=== PATIENT | female | born 1965 | race Two or more races ===

== ENCOUNTER 2020-03-31 22:03 | Emergency (ER) | payer OTHER ==
[~2020-03-31] VITALS: Ht 160 cm; Wt 61.2 kg
[~2020-03-31 22:03] MED LIST: BENADRYL25 MG ORAL; CEPHALEXIN500 MG ORAL; NKM
[2020-03-31 22:16] VITALS: BP 137/88
--- NOTE | 2020-03-31 22:16 | NUR ---
ED Nurse Note: Pt left without seeing EDMD. Pt stated "Im going to go" but did not give reason. Addendum: 03/31/20 at 2221 by JASON ED Nurse Note: Pt left without seeing EDMD. Pt stated "Im going to go" but did not give reason. Education given on risk and benefits of leaving, pt stated she wanted to leave. Pt refused to sign paperwork.
--- NOTE | 2020-03-31 22:17 | Emergency Room Report ---
History of Present Illness General Chief Complaint: Multiple Trauma/Fall Source: Patient Present Illness HPI Is a 55-year-old female who presents with a chief point of multiple injuries from a fall. She tripped and fell and hit her head and injured her knees also. She complained of head injury and laceration to the right eyebrow. Also pain to the bilateral knees. She was triaged and brought to the room. After she went to the restroom, she was talking on the phone with family member decided that she does not want to stay. I did not get examined this patient other than observation. Allergies: Coded Allergies: No Known Allergies (Unverified , 05/28/13) COVID-19 Screening Contact w/high risk pt: No Experienced COVID-19 symptoms?: No COVID-19 Testing performed [employer]: No Nursing Documentation-[facility] [place] Past Medical History: No Stated History Physical Exam Vital Signs Date Time Temp Pulse Resp B/P (MAP) Pulse Ox O2 Delivery O2 Flow Rate FiO2 03/31/20 22:07 98.8 86 18 137/88 (104) 97 Room Air Medical Decision Making Diagnostic Impression: Primary Impression: Multiple injuries due to trauma ER Course Patient presents with a fall with multiple injury including head injury. She decided not to stay after talking to her family member. She is competent to make that decision. I did not get to see this patient. Last Vital Signs Date Time Temp Pulse Resp B/P (MAP) Pulse Ox O2 Delivery O2 Flow Rate FiO2 03/31/20 22:07 98.8 86 18 137/88 (104) 97 Room Air Status: unchanged Disposition: AGAINST MEDICAL ADVICE Condition: Stable Ponce Young MD Mar 31, 2020 22:17
== END 2020-03-31 22:16 | disposition left against medical advice (07) ==
LOC: EMR 22:16
DX: S09.90XA Unspecified injury of head, initial encounter (principal); S01.111A Laceration without foreign body of right eyelid and periocular area, initial encounter; W01.0XXA Fall on same level from slipping, tripping and stumbling without subsequent striking against object, initial encounter; Y92.9 Unspecified place or not applicable; M25.562 Pain in left knee; M25.561 Pain in right knee; Z53.21 Procedure and treatment not carried out due to patient leaving prior to being seen by health care provider